=== PATIENT | male | born 1940 ===

== ENCOUNTER → 2018-01-03 | Outpatient (CLI) | payer MEDICARE | END | disposition home or self-care (01) | LOC: ORTHO 14:58 | DX: M17.11 Unilateral primary osteoarthritis, right knee (principal) ==

== ENCOUNTER → 2018-10-07 | Outpatient (CLI) | payer MEDICARE | END | disposition home or self-care (01) | LOC: ORTHO 00:09 | DX: M17.0 Bilateral primary osteoarthritis of knee (principal) ==